=== PATIENT | male | born 1980 | race Caucasian/White ===

== ENCOUNTER 2016-08-14 12:54 | Emergency (ER) | payer BC ==
[2016-08-14 13:00] VITALS: BP 149/75; PULSE 60; RESP 16; TEMP 98.1; O2SAT 98
[2016-08-14 13:01] VITALS: BMI 32.1
--- NOTE | 2016-08-14 13:15 | C.PDOC ---
History Of Present Illness 35M brought to the ED by EMS after he sent a picture of himself to his girlfriend with a "belt around my neck" in order to "ignacio sympathy." he says he found out last night that she cheated on him and he has been feeling very sad bc of this. he denies any suicidal ideation. denies any hx of depression and suicide attempts. 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, PSYCHOEDUCATION (12/27/15) Family History: States: Other - Social History Hx Tobacco Use: Yes Hx Alcohol Use: No Hx Substance Use: No - Immunization History Hx Tetanus Toxoid Vaccination: No Hx Influenza Vaccination: No Hx Pneumococcal Vaccination: No Review Of Systems Constitutional: Negative for: Fever, Weakness, Malaise Cardiovascular: Negative for: Chest Pain Respiratory: Negative for: Cough, Shortness of Breath Gastrointestinal: Negative for: Nausea, Vomiting, Abdominal Pain Neurological: Negative for: Weakness, Numbness, Altered Mental Status, Headache Psych: Negative for: Suicidal ideation Physical Exam - Physical Exam Appears: Well, Non-toxic, No Acute Distress Skin: Warm, Dry Head: Atraumatic Eye(s): bilateral: PERRL Oral Mucosa: Moist Neck: Normal ROM Cardiovascular: Rhythm Regular Respiratory: No Decreased Breath Sounds, No Accessory Muscle Use Neurological/Psych: Oriented x3, Other (no focal deficits) ED Course And Treatment O2 Sat by Pulse Oximetry: 98 Medical Decision Making Medical Decision Making: psych was consulted- the counselor came and spoke with the pt. * 1406 - Patient was seen on security cameras leaving the hospital premises. Police were notified. Disposition - Disposition Disposition: ELOPEMENT - ER ONLY Disposition Time: 14:06 Condition: UNKNOWN - Clinical Impression Clinical Impression: Depressed mood
== END 2016-08-14 14:06 | disposition left against medical advice (07) ==
LOC: C.ER 12:54
DX: F32.9 Major depressive disorder, single episode, unspecified (principal)